=== PATIENT | male | born 1990 | race Caucasian/White ===

== ENCOUNTER 2021-05-13 05:11 | Inpatient (IN) | payer OTHER ==
[~2021-05-13] VITALS: Ht 170.2 cm; Wt 89.6 kg
[2021-05-13 05:49] LABS: BASOPHILS % 0.4 % (0.0-2.0); EOSINOPHILS % 3.5 % (0.0-5.0); HEMATOCRIT. 46.3 % (42.0-52.0); HEMOGLOBIN. 15.3 g/dL (14.0-18.0); LYMPHOCYTES % 37.7 % (20.0-50.0); MEAN CORPUSCULAR HEMOGLOBIN 30.4 pg (28.0-32.0); MEAN CORPUSCULAR VOLUME 92.1 fL (80.0-94.0); MEAN PLATELET VOLUME 11.1 fl (7.4-10.4); MONOCYTES % 5.2 % (2.0-8.0); NEUTROPHILS % 53.2 % (40.0-76.0); PLATELET 183 x1000/uL (130-400); RED BLOOD CELL COUNT 5.03 mill/uL (4.7-6.1)
[2021-05-13 06:09] LABS: CHLORIDE 106 mEq/L (98-107)
[2021-05-13 06:14] LABS: ETHANOL BLOOD < 10 mg/dL
[2021-05-13] MEDS ORDERED: LORAZEPAM 2MG/ML CPJ IM STA (06:17)
[2021-05-13 10:09] LABS: CLARITY URINE CLOUDY (CLEAR); COLOR URINE YELLOW (YELLOW); KETONES URINE TRACE (NEGATIVE); LEUKOCYTE ESTERASE URINE NEGATIVE (NEGATIVE); NITRITE URINE NEGATIVE (NEGATIVE); OCCULT BLOOD URINE TRACE (NEGATIVE); PROTEIN URINE TRACE (NEGATIVE); SPECIFIC GRAVITY URINE 1.016 (1.005-1.030); UROBILINOGEN URINE 0.2 E.U./dL (0.2-1.0)
[2021-05-13 10:23] LABS: *BARBITURATES SCREEN URINE NEGATIVE (NEGATIVE)
[2021-05-13 10:24] LABS: *AMPHETAMINES SCREEN URINE NEGATIVE (NEGATIVE); *BENZODIAZEPINES SCREEN URINE PRESUMTIVE POSITIVE (NEGATIVE); *COCAINE SCREEN URINE NEGATIVE (NEGATIVE); CANNABINOID URINE SCREEN PRESUMTIVE POSITIVE (NEGATIVE); OPIATES URINE SCREEN NEGATIVE (NEGATIVE); PHENCYCLIDINE URINE SCREEN NEGATIVE (NEGATIVE)
[2021-05-13] MEDS ORDERED: IPRATROPIUM/ALBUTEROL 0.5-3(2.5)MG/3ML NEB HHN PRN (15:00)
[2021-05-13] MEDS ORDERED: ONDANSETRON HCL 4MG/2ML INJ IV PRN (15:00)
[2021-05-13] MEDS ORDERED: ACETAMINOPHEN 325MG TABLET PO PRN ×2 (15:00)
[2021-05-13] MEDS ORDERED: HYDROCODONE/ACETAMINOPHEN 5/325MG TABLET PO PRN (15:00)
[2021-05-13] MEDS ORDERED: LEVETIRACETAM 500 MG in SODIUM CHLORIDE 0.9% 100 ML IV SCH (15:00)
[2021-05-13] MEDS ORDERED: POTASSIUM CHLORIDE 20MEQ TABLET SR PO NR (15:00)
[2021-05-13] MEDS ORDERED: LORAZEPAM 2MG/ML CPJ IV PRN (15:00)
[2021-05-13 16:07] VITALS: BP 131/56
[2021-05-13 16:11] VITALS: BP 131/56
[2021-05-13] MEDS: LEVETIRACETAM 500MG PREMIX 100 ML IV SCH (17:34)
[2021-05-13] MEDS: SODIUM CHLORIDE 0.9% 1,000 ML IV SCH (17:34)
[2021-05-13 20:00] VITALS: BP 107/58
[2021-05-14] VITALS: BP 114/56
[2021-05-14] MEDS: SODIUM CHLORIDE 0.9% 1,000 ML IV SCH ×2 (02:47→12:47)
[2021-05-14 04:00] VITALS: BP 106/57
[2021-05-14] MEDS: LEVETIRACETAM 500MG PREMIX 100 ML IV SCH ×2 (06:05→17:02)
[2021-05-14 08:00] VITALS: BP 104/81
[2021-05-14] MEDS ORDERED: MAGIC MOUTHWASH XX PRN (10:30)
[2021-05-14] MEDS ORDERED: KEPP500 MT (10:31)
[2021-05-14] MEDS ORDERED: MAGIC MOUTHWASH PO PRN (10:45)
[2021-05-14 11:14] LABS: CHLORIDE 108 mEq/L (98-107)
[2021-05-14 12:00] VITALS: BP 106/56
[2021-05-14 16:00] VITALS: BP 105/53
[2021-05-14 18:41] LABS: METHADONE URINE SCREEN NEGATIVE (NEGATIVE)
[2021-05-14 20:00] VITALS: BP 110/58
[2021-05-15] VITALS: BP 108/55
[2021-05-15] MEDS: SODIUM CHLORIDE 0.9% 1,000 ML IV SCH ×2 (00:17→09:10)
[2021-05-15 04:00] VITALS: BP 106/52
[2021-05-15] MEDS: LEVETIRACETAM 500MG PREMIX 100 ML IV SCH (05:04)
[2021-05-15 07:41] VITALS: BP 105/60
[2021-05-15 08:48] LABS: CHLORIDE 110 mEq/L (98-107)
[2021-05-15 09:04] LABS: BASOPHILS % 0.3 % (0.0-2.0); EOSINOPHILS % 2.3 % (0.0-5.0); HEMATOCRIT. 40.4 % (42.0-52.0); HEMOGLOBIN. 14.2 g/dL (14.0-18.0); LYMPHOCYTES % 32.2 % (20.0-50.0); MEAN CORPUSCULAR HEMOGLOBIN 30.9 pg (28.0-32.0); MEAN CORPUSCULAR VOLUME 87.7 fL (80.0-94.0); MEAN PLATELET VOLUME 10.7 fl (7.4-10.4); MONOCYTES % 7.7 % (2.0-8.0); NEUTROPHILS % 57.5 % (40.0-76.0); PLATELET 138 x1000/uL (130-400); RED BLOOD CELL COUNT 4.61 mill/uL (4.7-6.1); RED CELL DISTRIBUTION WIDTH 12.7 % (11.6-14.6)
[2021-05-15 12:03] VITALS: BP 117/66
[2021-05-15 13:54] VITALS: BP 117/66
[2021-05-15 14:30] VITALS: BP 117/66
== END 2021-05-15 15:25 | disposition home or self-care (01) | DRG 53 ==
LOC: ER 05:11 → 6WST 09:41 → ENRESERV 12:09
PROVIDERS: ADMIT Internal Medicine; ATTEND Internal Medicine
PROC: 4A10X4Z Monitoring of Central Nervous Electrical Activity, External Approach (ICD-10-PCS; principal; 2021-05-14)
DX: G40.89 Other seizures (principal); F12.90 Cannabis use, unspecified, uncomplicated; Z20.822 Contact with and (suspected) exposure to COVID-19; R00.1 Bradycardia, unspecified; Z82.3 Family history of stroke; Z87.891 Personal history of nicotine dependence; Z79.899 Other long term (current) drug therapy
CPT/HCPCS: 36415; 70551; 71045; 80048; 80053; 80305; 80320; 81003; 83735; 84443; 85025; 87426; 93005; 93306; 99285; J1953; J2060; J2405; J7030; G0480